=== PATIENT | female | born 1955 | race Two or more races ===

== ENCOUNTER 2021-07-16 20:15 | Emergency (ER) | payer MEDICARE, MEDICAID ==
[~2021-07-16] VITALS: Ht 144.8 cm; Wt 64.4 kg
[2021-07-17 04:56] VITALS: BP 186/93
== END 2021-07-17 09:02 | disposition home or self-care (01) ==
LOC: EDBD 20:15 → ER 20:18
DX: S70.02XA Contusion of left hip, initial encounter (principal); E11.9 Type 2 diabetes mellitus without complications; N18.6 End stage renal disease; W19.XXXA Unspecified fall, initial encounter; Y93.89 Activity, other specified; Y92.89 Other specified places as the place of occurrence of the external cause; Y99.8 Other external cause status
CPT/HCPCS: 70450; 71250; 72125; 74176